=== PATIENT | female | born 1995 | race Caucasian/White ===

== ENCOUNTER 2022-10-21 18:40 | Emergency (ER) | payer OTHER, SELFPAY ==
--- NOTE | 2022-10-21 18:55 | ED.URI ---
HPI - URI/Sore Throat General Chief Complaint: General Medical Stated Complaint: Sinus infection Time Seen by Provider: 10/21/22 19:03 Source: patient Mode of arrival: ambulatory Limitations: no limitations History of Present Illness HPI Narrative: Patient is a 27-year-old female who presents emergency department for evaluation of upper respiratory symptoms. Complaining of left facial pain, yellow nasal discharge, nasal congestion, pain to upper jaw. Symptoms present for 2 weeks without any improvement. Denies fevers, chills, cough, shortness of breath, ear pain, sore throat. Related Data Previous Rx's Medication Instructions Recorded doxycycline hyclate 100 mg capsule 100 mg PO BID #14 caps 10/21/22 Allergies Allergy/AdvReac Type Severity Reaction Status Date / Time Penicillins Allergy Unknown Unknown Verified 10/21/22 19:03 Review of Systems Review of Systems: Constitutional: No fever. No chills. No weakness. No fatigue. ENT/ Mouth: No Ear Pain, positive Nasal Congestion, no sore throat, positive sinus tenderness, No Swallowing Difficulty Skin: No rash or itching. Cardiovascular: No chest pain. No palpitations. Respiratory: No shortness of breath. No cough. No sputum production. Gastrointestinal: No nausea. No vomiting. No diarrhea. No abdominal pain. Genitourinary: No burning micturition. No urinary frequency. Neurologic: No headache. No dizziness. No syncope. No numbness or tingling in the extremities. Musculoskeletal: No muscle pain. No back pain. No joint pain or stiffness. Yes all other systems are reviewed and are negative PMFSH Past Medical History Attestation statement: The following information was validated with the patient. Source: old records reviewed Physical Exam Vital Signs: Vital Signs: Last Vital Signs Temp 97.6 F 10/21/22 18:59 Pulse 75 10/21/22 18:59 Resp 16 10/21/22 18:59 BP 145/68 H 10/21/22 18:59 Pulse Ox 95 10/21/22 18:59 O2 Del Method 10/21/22 18:59 BMI result Body Mass Index 24.9 Appearance: Alert.?Oriented to person, place and time. No acute distress.?Normal affect. Eyes: Pupils equal, round and reactive to light.? ENT: TM normal bilaterally. Pharynx normal.??Left maxillary sinus tenderness upon palpation. Neck: Normal inspection.? Neck supple.??No cervical adenopathy CVS: Heart sounds normal. Normal heart rate and rhythm.? Pulses normal.?? Respiratory: No respiratory distress.? Lung sounds clear to auscultation bilaterally?? Abdomen: Soft and non-tender. Normoactive bowel sounds. Skin: Skin warm and dry.? Normal skin color.? ? Extremities: No lower extremity edema.? Neuro: Moves all extremities spontaneously. Sensation intact bilaterally. No motor deficits. Ambulates with normal steady gait. Medical Decision Making Medical Decision Making MDM Narrative: Patient is a 27-year-old female with no reported past medical history presenting for evaluation of upper respiratory symptoms. History and physical examination appear most consistent with acute maxillary sinusitis. Well-appearing, nontoxic, afebrile, no tachycardia or tachypnea/hypoxia. Speaking clear full sentences, ambulatory with steady gait. Discussed conservative treatment including rest, hydration, Tylenol/ibuprofen as needed for fever and body aches, saline nasal spray, humidifier, [id number] cold medication. Prescription for doxycycline sent to patient's pharmacy. Advised to follow-up with primary care provider as needed, discussed reasons to return back to the emergency department. All questions were answered. Patient discharged home in stable condition. Differential Diagnosis Differential Diagnoses: The differential diagnosis associated with the presentation includes Prescription Management I considered prescription management with: Antibiotic Discharge Plan Discharge Clinical Impression: Acute maxillary sinusitis Patient Disposition: Home, Self-Care Instructions: Sinusitis (ED) Additional Instructions: A prescription for antibiotic was sent your pharmacy, please complete this entire course. Follow-up with your primary care provider as needed for persistent symptoms. Return back to emergency department any new or worsening symptoms or concerns. Prescriptions: New doxycycline hyclate 100 mg capsule 100 mg PO BID Qty: 14 0RF Referrals: Physician,Unknown J [Physician] -
[2022-10-21 18:59] VITALS: BP 145/68; PULSE 75; RESP 16; TEMP 36.4; O2SAT 95; BMI 24.9
== END 2022-10-21 19:15 | disposition home or self-care (01) ==
LOC: HO.ED 19:07
PROVIDERS: Emergency Provider Internal Medicine; PCP Internal Medicine
DX: J01.00 Acute maxillary sinusitis, unspecified (principal)
CPT/HCPCS: 99282

== ENCOUNTER 2023-03-22 19:43 | Emergency (ER) | payer OTHER, MEDICAID, SELFPAY ==
[2023-03-22 19:54] VITALS: BP 138/94; PULSE 67; RESP 18; TEMP 36.6; O2SAT 99; BMI 26.3
--- NOTE | 2023-03-22 19:56 | ED.GENADULT ---
HPI - General Adult General Chief complaint: General Medical Stated complaint: ?Srep Time Seen by Provider: 03/22/23 21:22 Source: patient Mode of arrival: ambulatory Limitations: no limitations History of Present Illness HPI narrative: Patient with History of frequent strep throat was with friend daughter was positive for strep yesterday and now patient is feeling soreness in the throat patient does have psoriasis which flares up with any infection no cough or fever Related Data Previous Rx's Medication Instructions Recorded doxycycline hyclate 100 mg capsule 100 mg PO BID #14 caps 10/21/22 azithromycin 250 mg tablet 250 mg PO DAILY 4 days #4 tabs 03/22/23 (Zithromax) Allergies Allergy/AdvReac Type Severity Reaction Status Date / Time Penicillins Allergy Unknown Unknown Verified 03/22/23 19:54 Review of Systems Review of Systems: Yes all other systems are reviewed and are negative [facility] Social History Social History Alcohol intake: current Smoked in Last 30 Days: Yes Use of substances other than those prescribed or required for medical reasons: No Advance Directives: No Advance Directives Information Provided: No Physical Exam ED Vital Signs: Vital Signs - 24 hr 03/22/23 19:54 03/22/23 20:00 Temperature 97.8 F 98.4 F Pulse Rate 67 73 Respiratory Rate 18 16 Blood Pressure 138/94 H 138/87 Pulse Oximetry 99 98 Oxygen Delivery Method Room Air Room Air BMI result Body Mass Index 26.3 Appearance: Alert. Oriented X3. No acute distress. ENT: Pharynx with erythema no exudate. Oral Mucosa moist Neck: Normal inspection. Neck supple. CVS: Normal heart rate and rhythm. Pulses normal. Respiratory: No respiratory distress. Equal air entry bilateral, no wheezing/rales/rhonchi Skin: Skin warm and dry. Normal skin color. Normal skin turgor. Extremities: No lower extremity edema. Neuro: Oriented X 3. Course Course Course Narrative: RME performed by Ariadne Brito PA-C. Patient is a 28 year old assigned female at presenting to the emergency department with a sore throat. Swabs ordered. Patient placed back in the waiting room pending room availability and results. Medications Administered Discontinued Medications Generic Name Dose Route Start Last Admin Trade Name Freq PRN Reason Stop Dose Admin Azithromycin 500 mg 03/22/23 21:33 03/22/23 21:46 Azithromycin 500 Mg Tablet PO 03/22/23 21:34 500 mg ONCE ONE Administration Medical Decision Making Medical Decision Making [facility] Narrative: Patient with slight erythematous pharynx with history of frequent strep will prescribe Zithromax Lab Data MDM Lab Attestation statement: I reviewed the patient's lab results. Labs: Lab Results 03/22/23 03/22/23 03/22/23 Range/Units 20:03 20:03 20:03 COVID-19 ([facility]STEN) Negative (Negative) COVID-19 Clin Com See Note Influenza Type A ([facility]) Negative (Negative) Influenza Type B ([facility]OSH) Negative (Negative) Influenza A & B Note See Note S. pyogenes GrpA [facility] Negative (Negative) Discharge Plan Discharge Clinical Impression: Acute pharyngitis Patient Disposition: Home, Self-Care Instructions: Pharyngitis (ED) Additional Instructions: Drink plenty of fluids Zithromax as advised Follow with PCP if not better Prescriptions: New azithromycin [Zithromax] 250 mg tablet 250 mg PO DAILY 4 Days Qty: 4 0RF Rx Instructions: start on day 2 of therapy No Action doxycycline hyclate 100 mg capsule 100 mg PO BID Qty: 14 0RF Interventions: ED Discharge Assessment Last Done: 03/22/23 21:55 Discharge Date/Time: 03/22/23 21:55
[2023-03-22 20:00] VITALS: BP 138/87; PULSE 73; RESP 16; TEMP 36.9; O2SAT 98
[2023-03-22 20:21] LABS: IDNOW Serial# 08D9AD1C; Strep A Nucleic Acid Negative (Negative)
[2023-03-22 20:31] LABS: COVID-19 Test Negative (Negative); IDNOW Serial# 6674DD1D; IDNOW Serial# BCCEAD1C; Influenza A Negative (Negative); Influenza B2 Negative (Negative)
[2023-03-22] MEDS: Azithromycin 500 MG TABLET PO (21:46)
== END 2023-03-22 21:55 | disposition home or self-care (01) ==
PROVIDERS: Physician Assistant Medical; Emergency Provider Internal Medicine; PCP Internal Medicine
DX: J02.9 Acute pharyngitis, unspecified (principal); Z20.822 Contact with and (suspected) exposure to COVID-19; Z20.828 Contact with and (suspected) exposure to other viral communicable diseases; Z79.899 Other long term (current) drug therapy
CPT/HCPCS: 87502; 87635; 87651; 99283; 99284